=== PATIENT | female | born 1990 | race Caucasian/White ===

== ENCOUNTER 2017-03-17 08:15 | Emergency (ER) | payer MEDICAID ==
[~2017-03-17] VITALS: Ht 152.4 cm; Wt 70.0 kg
[~2017-03-17 08:15] MED LIST: PRENATAL VITAMINS
[2017-03-17 08:18] VITALS: Ht 152.4 cm; Wt 70.0 kg
[2017-03-17 09:09] LABS: ADD SCAN DIFF NO
[2017-03-17 09:19] LABS: BASOPHILS % 0.4 % (0.0-2.0); EOSINOPHILS % 0.8 % (0.0-7.0); HEMATOCRIT 38.2 % (37.0-47.0); HEMOGLOBIN 12.6 g/dl (12.0-16.0); LYMPHOCYTES # 1.6 10^3/ul (0.8-2.9); LYMPHOCYTES % 31.7 % (15.0-51.0); MEAN CORPUSCULAR HEMOGLOBIN 30.3 pg (29.0-33.0); MEAN CORPUSCULAR VOLUME 91.8 fl (82.0-101.0); MEAN PLATELET VOLUME 10.4 fl (7.4-10.4); MONOCYTE # 0.7 10^3/ul (0.3-0.9); MONOCYTES % 13.7 % (0.0-11.0); NEUTROPHIL # 2.6 10^3/ul (1.6-7.5); NEUTROPHILS % 53.2 % (39.0-77.0); PLATELET COUNT 219 10^3/UL (140-415); RED BLOOD COUNT 4.16 10^6/ul (4.20-5.40); RED CELL DISTRIBUTION WIDTH 12.7 % (11.5-14.5)
[2017-03-17 09:39] LABS: ADD UMIC YES; URINE BILIRUBIN (Dip) NEGATIVE (NEGATIVE); URINE BLOOD (Dip) TRACE (NEGATIVE); URINE COLOR LT. YELLOW (YELLOW); URINE GLUCOSE (Dip) NEGATIVE (NEGATIVE); URINE KETONES (Dip) TRACE (NEGATIVE); URINE LEUKOCYTE ESTERASE (Dip) NEGATIVE (NEGATIVE); URINE NITRITE (Dip) NEGATIVE (NEGATIVE); URINE TOTAL PROTEIN (Dip) NEGATIVE (NEGATIVE); URINE UROBILINOGEN (Dip) 0.2 E.U./dL (0.1-1.0)
--- NOTE | 2017-03-17 09:43 | ERD ---
ER Documentation Chief Complaint Date/Time DATE: 03/17/17 Chief Complaint . Vaginal bleeding. HPI The patient is a 26-year-old female, A1, who presents the Emergency Department with complaint of vaginal bleeding. The patient's last menstrual period was 01/15/2017, and she believes that she is approximately 8 weeks . The patient reports that last Friday, after having sexual intercourse, the patient developed mild vaginal bleeding. The same symptoms occurred last night, after sexual intercourse. After waking up this morning the patient needed to use the restroom, and upon wiping, noted a small amount of bleeding on the tissue paper. Since, she has continued to have light vaginal spotting. She denies any passage of large clots or tissue. Denies abdominal pain or cramping. Denies dysuria, hematuria or flank pain. Denies fevers, sweats , chills, nausea or vomiting. Denies headache, dizziness, weakness, lower extremity swelling, chest pain, palpitations or shortness of breath. The patient takes vitamins daily. Denies any other complaints at this time. ROS All systems reviewed and are negative except as per history of present illness. Medications Home Meds Reported Medications [ Vitamins] No Conflict Check 02/14/10 Allergies Allergies: Coded Allergies: Sulfa (Sulfonamides) (Verified Allergy, Unknown, 08/20/10) PMhx/Soc History of Surgery: No Hx Neurological Disorder: No Hx Respiratory Disorders: No Hx Cardiac Disorders: No Hx Miscellaneous Medical Probl: No Hx Alcohol Use: No Hx Substance Use: Yes (MARIJUANA LAST USED A MONTH AND HALF AGO) Hx Tobacco Use: No Physical Exam Vitals Vital Signs Date Time Temp Pulse Resp B/P Pulse Ox O2 Delivery O2 Flow Rate FiO2 03/17/17 08:18 97.3 46 20 121/76 100 Physical Exam GENERAL: Well-developed, well-nourished, female, in no acute distress. HEENT: Head is normocephalic, atraumatic. No scleral pallor or icterus. Pupils equal, round and reactive to light. Conjunctiva pink. Moist mucous membranes. NECK: Supple. RESPIRATORY: Lungs are clear to auscultation bilaterally. Equal breath sounds. Normal expiratory effort. CARDIOVASCULAR: Regular rate and rhythm. S1 and S2 normal. Distal pulses are palpable, 2+ bilaterally. Capillary refill is less than 2 seconds. GASTROINTESTINAL: Abdomen is soft, non-tender, and non-distended. No guarding, no rebound tenderness. Normal bowel sounds. No gross peritonitis. FLANK: No CVA tenderness. BACK: No midline tenderness. EXTREMITIES: No clubbing, cyanosis, or edema. Normal skin perfusion. Moving all extremities. No focal swelling or erythema. NEUROLOGIC: The patient is alert, awake, and oriented x 3. No focal neurologic deficits. INTEGUMENT: Skin is intact. Warm and dry. PSYCHIATRIC: Normal mood and mentation. Result Diagram: 03/17/17 0900 Results 24 hrs Laboratory Tests Test 03/17/17 08:55 03/17/17 09:00 Urine Color LT. YELLOW Urine Clarity CLEAR Urine pH 7.0 Urine Specific [place] 1.015 Urine Ketones TRACE Urine Nitrite NEGATIVE Urine Bilirubin NEGATIVE Urine Urobilinogen 0.2 E.U./dL Urine Leukocyte Esterase NEGATIVE Urine Microscopic RBC 0-2/HPF Urine Microscopic WBC NONE SEEN/HPF Urine Squamous Epithelial Cells FEW Urine Mucus FEW Urine Hemoglobin TRACE Urine Glucose NEGATIVE% Urine Total Protein NEGATIVE White Blood Count 5.010^3/ul Red Blood Count 4.1610^6/ul Hemoglobin 12.6g/dl Hematocrit 38.2% Mean Corpuscular Volume 91.8fl Mean Corpuscular Hemoglobin 30.3pg Mean Corpuscular Hemoglobin Concent 33.0g/dl Red Cell Distribution Width 12.7% Platelet Count 49166^3/UL Mean Platelet Volume 10.4fl Neutrophils % 53.2% Lymphocytes % 31.7% Monocytes % 13.7% Eosinophils % 0.8% Basophils % 0.4% Nucleated Red Blood Cells % 0.0/100WBC Neutrophils # 2.610^3/ul Lymphocytes # 1.610^3/ul Monocytes # 0.710^3/ul Eosinophils # 0.010^3/ul Basophils # 0.010^3/ul Nucleated Red Blood Cells # 0.010^3/ul Beta HCG, Quantitative 722608.0mIU/ml Procedures/MDM DIAGNOSTIC TESTS AND INTERPRETATION: PROCEDURE: US OB. CLINICAL INDICATION: Vaginal bleeding. TECHNIQUE: Multiple sonographic images of the pelvis were obtained. Transabdominal and transvaginal views of the pelvis are available for review. The images were reviewed on a PACS workstation. COMPARISON: No prior studies are available for comparison. FINDINGS: Intrauterine is identified. The crown-rump length equals 2.1 cm which corresponds to 8 weeks 5 days gestational age by ultrasound criteria. Gestational sac size is 3.3 cm corresponding to 8 weeks 3 days. cardiac activity is 152 beats per minute. No subchorionic hemorrhage is identified. The adnexa are unremarkable. There is no free fluid. The right ovary measures 3.8 cm. Left ovary measures 2.4 cm. IMPRESSION: 1. Single viable intrauterine gestation of approximately 8 weeks 5 days by crown-rump length. 2. No adnexal masses, free fluid, or subchorionic hemorrhage is seen. .Isidro Katz MD, MD Date Time Electronically viewed and signed by .Isidro Katz MD, MD on 03/17/2017 09:56 MEDICAL DECISION MAKING: The possibility of threatened was discussed with the patient and she was told to follow up with her [facility] within 2-3 days for re-evaluation. The patient complies and agrees with plan. This is a 26-year-old female presenting to the Emergency Department complaining of vaginal bleeding. She had no significant abnormalities noted on physical examination. Vital signs were normal. Differential diagnosis includes, but is not limited to, ectopic , cervicitis, fibroids, molar , implantation bleeding, heterotopic , septic , missed , incomplete , inevitable , threatened , complete , coagulopathy, fibroids, adenomyosis, endometriosis, neoplasia, vaginitis, PID, vaginal trauma, dysfunctional uterine bleeding. No significant abnormalities were noted on testing ordered. Beta hCG is 146,960. Rh (+), no indication for RhoGAM. Ultrasound performed revealed an intrauterine gestation of 8 weeks 5 days by crown-rump length. Otherwise, no adnexal masses, free fluid , or subchorionic hemorrhage is seen. After rest, the patient reports no new complaints. Upon review and interpretation of the patient's presentation and overall ER course, I believe the patient's symptoms are most consistent with threatened and vaginal bleeding in a patient at less than 2 weeks gestation. At this time the patient patient is in stable condition with and therefore she be discharged home with strict return precautions for signs of deteriorating or worsening condition. The patient is advised to follow up with her [facility] within 2-3 days for reevaluation and further management, or return to the ER sooner for any worsening symptoms. I shared all laboratory and diagnostic imaging studies with the patient at length and in great detail, and the patient verbally understands and agrees with the plan for further observation and care as an outpatient. At the time of discharge, all questions were answered. Departure Diagnosis: Primary Impression: Vaginal bleeding in patient at less than 20 weeks gestation Additional Impression: Threatened Condition: Stable Patient Instructions: Bleeding During Early , Possible Miscarriage ( Threatened ) Additional Instructions: Call your [facility] TOMORROW for an appointment during the next 2-3 days.See the doctor sooner or return here if your condition worsens before your appointment time. JONATHAN DOMINIQUE PA-C March 17, 2017 09:43
[2017-03-17 09:56] LABS: MUCUS,URINE FEW; SQUAMOUS EPITHELIAL CELL,UR FEW; URINE RBCS 0-2 /HPF (0)
--- NOTE | 2017-03-17 09:56 | RADRPT ---
PROCEDURE: US OB. CLINICAL INDICATION: Vaginal bleeding. TECHNIQUE: Multiple sonographic images of the pelvis were obtained. Transabdominal and transvagin al views of the pelvis are available for review. The images were reviewed on a PACS workstation. COMPARISON: No prior studies are available for comparison. FINDINGS: Intrauterine is identified. The crown-rump length equals 2.1 cm which corresponds to 8 we eks 5 days gestational age by ultrasound criteria. Gestational sac size is 3.3 cm corresponding to 8 weeks 3 days. cardiac activity is 152 beats per minute. No subchorionic hemorrhage is ident ified. The adnexa are unremarkable. There is no free fluid. The right ovary measures 3.8 cm. Left ovary measures 2.4 cm. IMPRESSION: 1. Single viable intrauterine gestation of approximately 8 weeks 5 days by crown-rump length. 2. No adnexal masses, free fluid, or subchorionic hemorrhage is seen.. RPTAT: [facility] .Isidro Katz MD, MD Date Time Electronically viewed and signed by .Isidro Katz MD, on 03/17/2017 09:56 .L/
== END 2017-03-17 10:41 | disposition home or self-care (01) ==
LOC: FTE 08:15
DX: O20.9 Hemorrhage in early pregnancy, unspecified (principal); O20.0 Threatened abortion; Z3A.08 8 weeks gestation of pregnancy
CPT/HCPCS: 36415; 76801; 76817; 81001; 84702; 85025; 86900; 86901; Z7502